=== PATIENT | female | born 1945 | race Two or more races ===

== ENCOUNTER 2024-07-17 10:42 | Emergency (ER) | payer OTHER ==
[~2024-07-17] VITALS: Ht 149.9 cm; Wt 70.8 kg
[~2024-07-17 10:42] MED LIST: CARV25TA55; FURO1TAB33; PLAVIX; VALS160T4
[2024-07-17] MEDS: SODIUM CHLORIDE 0.9% 1,000 ML IV ONE (12:39)
--- NOTE | 2024-07-17 12:52 | DVH ---
XY CHEST XRAY 1 VIEW, HISTORY: WEAKNESS COMPARISON: None None TECHNICAL DATA: 1 view of the chest was obtained. FINDINGS: Lines and tubes: Cardiac pacer is seen. Sternotomy wires are noted. Cardiomediastinal silhouette: Enlarged Pulmonary vasculature: normal Lung expansion: normal Lung airspace: normal Lung interstitium: normal Pleura: normal Pneumothorax: no Bones: Unremarkable Other: no IMPRESSION: No acute intrathoracic abnormality. Cardiomegaly.
--- NOTE | 2024-07-17 12:53 | ED.PDOC ---
History of Present Illness HPI Comments A 78 YEAR OLD FEMALE PRESENTS TO THE ED WITH COMPLAINT OF LOW BLOOD PRESSURE AND FATIGUE. PATIENT STATES SHE HAS BEEN EXPERIENCING LOWER BLOOD PRESSURE THEN USUAL AND INCREASED FATIGUE FOR THE PAST 3 DAYS. PATIENT DENIES VISION CHANGES, SLURRED SPEECH, ONE-SIDED WEAKNESS, FACIAL DROOP, DYSURIA, FEVER, CHILLS, SHORTNESS OF BREATH, CHEST PAIN, ABDOMINAL PAIN, NAUSEA, VOMITING, HEADACHE, OR OTHER COMPLAINTS. NO OTHER SYMPTOMS OR MODIFYING FACTORS AT THIS TIME. PATIENT IS ALERT, ORIENTED X 4, AND HAS STEADY GAIT. Chief Complaint: General Weakness Time Seen by MD: 11:43 Primary Care Provider: ROBYN Reviewed Notes: Nurses Notes, Medications, Allergies Allergies: Coded Allergies: NO KNOWN ALLERGIES (Unverified , 12/13/11) Home Meds Reported Medications Valsartan (Diovan) 160 Mg Tab 12/13/11 Furosemide (Lasix) 20 Mg Tb 12/13/11 Carvedilol (Carvedilol) 25 Mg Tab 12/13/11 [Plavix] 75 MG No Conflict Check 12/13/11 Information Source: Patient Mode of Arrival: Ambulatory Severity: Moderate Timing: Days Duration: Since onset, Days Prehospital treatment: None Medication Refill: For: Other (LOW BLOOD PRESSURE AND FATIGUE) Past Medical History PAST MEDICAL HISTORY: CAD, CKF, HTN Surgical History: Pacemaker [employer]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 Family History Family History: No family hx of DM Social History Smoker: Non-Smoker Alcohol: Denies ETOH Use Drugs: Denies Drug Use Lives In: Home Constitutional: reports: fatigue; denies: chills, diaphoresis, fever, malaise, sweats, weakness, others EENTM: denies: blurred vision, double vision, ear bleeding, ear discharge, ear drainage, ear pain, ear ringing, eye pain, eye redness, hearing loss, mouth pain, mouth swelling, nasal discharge, nose bleeding, nose congestion, nose pain, photophobia, tearing, throat pain, throat swelling, voice changes, others Respiratory: denies: cough, hemoptysis, orthopnea, SOB at rest, shortness of breath, SOB with excertion, stridor, wheezing, others Cardiovascular: reports: others (LOW BLOOD PRESSURE); denies: chest pain, dizzy spells, diaphoresis, Dyspnea on exertion, edema, irregular heart beat, left arm pain, lightheadedness, palpitations, PND, syncope Gastrointestinal: denies: abdomen distended, abdominal pain, blood streaked bowels, constipated, diarrhea, dysphagia, difficulty swallowing, hematemesis, melena, nausea, poor appetite, poor fluid intake, rectal bleeding, rectal pain, vomiting, others Genitourinary: denies: abnormal vagina bleeding, burning, dyspareunia, dysuria, flank pain, frequency, hematuria, incontinence, pain, , vagina discharge, urgency, others Neurological: denies: dizziness, fainting, headache, left sided numbness, left sided weakness, numbness, paresthesia, pre-existing deficit, right sided numbness, right sided weakness, seizure, speech problems, tingling, tremors, weakness, others Musculoskeletal: denies: back pain, gout, joint pain, joint swelling, muscle pain, muscle stiffness, neck pain, others Integumetry: denies: bruises, change in color, change in hair/nails, dryness, laceration, lesions, lumps, rash, wounds, others Allergic/Immunocompromised: denies: Difficulty Healing, Frequent Infections, Hives, Itching, others Hematologic/Lymphatic: denies: anemia, blood clots, easy bleeding, easy bruising, swollen glands, others Endocrine: denies: excessive hunger, excessive sweating, excessive thirst, excessive urination, flushing, intolerance to cold, intolerance to heat, unexplained weight gain, unexplained weight loss, others Psychiatric: denies: anxiety, bipolar disorder, depression, hopeless, panic disorder, schizophrenia, sleepless, suicidal, others All Other Systems: Reviewed and Negative Physical Exam General Appearance: No Apparent Distress, Normal HEENT: Normal ENT Inspection, PERRL/EOMI, Pharynx Normal, TMs Normal Neck: Full Range of Motion, Non-Tender, Normal, Normal Inspection Respiratory: Chest Non-Tender, Lungs Clear, No Accessory Muscle Use, No Respiratory Distress, Normal Breath Sounds Cardiovascular: No Edema, No JVD, No Murmur, No Gallop, Normal Peripheral Pulses, Regular Rate/Rhythm Breast Exam: Deferred Gastrointestinal: No Organomegaly, Non Tender, No Pulsatile Mass, Normal Bowel Sounds, Soft Genitalia: Deferred Pelvic: Deferred Rectal: Deferred Extremities: No calf tenderness, Normal capillary refill, Normal inspection, Normal range of motion, Non-tender, No pedal edema Musculoskeletal : Apperance: Normal Neurologic: Alert, converting supervisor II-XII nml as Tested, No Motor Deficits, Normal Affect, Normal Mood, No Sensory Deficits Cerebellar Function: Normal Reflexes: Normal Skin: Dry, Normal Color, Warm Peripheral Pulses: 2+ carotid (R), 2+ carotid (L) Lymphatic: No Adenopathy Was a procedure done? Was a procedure done?: No EKG EKG : Pulse Rate (adult): 60 [place]: Normal Cardiac Rhythm: NSR Block: None Hypertrophy: None ST: Normal Differential Dx Considerations may include: HYPOTENSION, DEHYDRATION, ELECTROLYTE IMBALANCE, UTI, ACUTE CYSTITIS, GENERALIZED WEAKNESS, HYPOKALEMIA, HYPONATREMIA X-Ray, Labs, Meds, VS Vital Signs Date Time Temp Pulse Resp B/P (MAP) Pulse Ox O2 Delivery O2 Flow Rate FiO2 07/17/24 13:34 98.4 61 18 117/60 (79) 96 98.4 07/17/24 12:07 82 18 97 Room Air 07/17/24 12:07 98.9 82 18 107/68 (81) 97 98.9 07/17/24 11:48 98.9 82 18 107/68 (81) 97 07/17/24 11:38 60 Lab Test 07/17/24 12:42 07/17/24 12:18 Range/Units White Blood Count 5.9 4.4-10.8 10^3/uL Red Blood Count 4.47 4.0-5.20 10^6/uL Hemoglobin 13.3 12.2-16.2 g/dL Hematocrit 40.4 36.0-46.0 % Mean Corpuscular Volume 90.5 80.0-100.0 fL Mean Corpuscular Hemoglobin 29.8 28.0-32.0 pg Mean Corpuscular Hemoglobin Concent 33.0 32.0-36.0 g/dL Red Cell Distribution Width 14.5 H 11.8-14.3 % Platelet Count 152 140-450 10^3/uL Mean Platelet Volume 10.1 6.9-10.8 fL Neutrophils (%) (Auto) 63.2 37.0-80.0 % Lymphocytes (%) (Auto) 23.9 10.0-50.0 % Monocytes (%) (Auto) 11.6 0.0-12.0 % Eosinophils (%) (Auto) 0.5 0.0-7.0 % Basophils (%) (Auto) 0.8 0.0-2.0 % Neutrophils # (Auto) 3.7 1.6-8.6 10 ^3/uL Lymphocytes # (Auto) 1.4 0.4-5.4 10 ^3/uL Monocytes # (Auto) 0.7 0-1.3 10 ^3/uL Eosinophils # (Auto) 0 0-0.8 10 ^3/uL Basophils # (Auto) 0 0-0.2 10 ^3/uL Nucleated Red Blood Cells 0.0 % Sodium Level 143 136-145 mmol/L Potassium Level 3.6 3.5-5.1 mmol/L Chloride Level 107 98-107 mmol/L Carbon Dioxide Level 28 20-31 mmol/L Anion Gap 8 5-15 Blood Urea Nitrogen 31 H 9-23 mg/dL Creatinine 1.03 H 0.550-1.02 mg/dL Glomerular Filtration Rate Calc 56 >90 mL/min BUN/Creatinine Ratio 30.1 H 10.0-20.0 Serum Glucose 118 H 74-106 mg/dL Calcium Level 9.4 8.7-10.4 mg/dL Magnesium Level 2.2 1.6-2.6 mg/dL Troponin I High Sensitivity 4 </=34 ng/L Thyroid Stimulating Hormone (TSH) 1.04 0.55-4.78 uIU/mL Urine Color Light-yellow Yellow Urine Clarity Clear Clear Urine pH 6.0 5.0-9.0 Urine Specific [place] 1.013 1.001-1.035 Urine Protein Negative Negative Urine Ketones Negative Negative Urine Blood Negative Negative /uL Urine Nitrite 2+ H Negative Urine Bilirubin Negative Negative Urine Urobilinogen Normal Negative mg/dL Urine Leukocyte Esterase 2+ Negative /uL Urine RBC 1 0 - 4 /hpf Urine WBC 12 0 - 5 /hpf Urine Squamous Epithelial Cells Few <5 /hpf Urine Bacteria Few H None Seen /hpf Urine Hyaline Casts Mod 0 - 2 /lpf Urine Glucose Normal Normal mg/dL Current Medications Medications (Trade) Dose Ordered Sig/Angelina Route Start Time Stop Time Status Last Admin Sodium Chloride 1,000 ml @ 1,000 mls/hr Q1H ONCE IV 07/17/24 12:15 07/17/24 13:14 DC 07/17/24 12:39 X-Ray, Labs, Meds, VS Comment LABS ORDERED: CBC, BMP, UA, MAGNESIUM, TSH, TROPONIN REVIEWED AND INTERPRETED RESULTS: LEUKOCYTES 2+, NITRITES 2+ TREATMENT: NS 1 L IV, ROCEPHIN 1 G IV A 78 YEAR OLD FEMALE PRESENTED TO THE ED C/O GENERALIZED WEAKNESS AND LOW BLOOD PRESSURE PER PATIENT FOR THE PAST 3 DAYS. UPON MY PHYSICAL EXAMINATION, WAS WELL-APPEARING AND WAS IN NO ACUTE RESPIRATORY DISTRESS OR PAIN AT THIS TIME. MY DIFFERENTIAL DIAGNOSIS INCLUDES, DEHYDRATION, ELECTROLYTE IMBALANCE, UTI, ACUTE CYSTITIS, HYPOTENSION, HYPOKALEMIA, HYPONATREMIA. LABS WERE ORDERED FOR THE PATIENT WHICH REVEALED LEUKOCYTES 2+ IN HER URINE AND NITRITES 2+ IN THE URINE SUGGESTING A URINARY TRACT INFECTION. PATIENT WAS MEDICATED HERE IN THE ED WITH NS 1 L IV AND ROCEPHIN 1 G IM. I HAVE CONSULTED DR. FIELDS REGARDING THIS PATIENT'S CASE AND HE WAS SAID PATIENT IS SAFE TO DISCHARGE HOME. PATIENT WILL BE DISCHARGED HOME AND I HAVE ADVISED THEM TO FOLLOW-UP WITH THE PCP IN 1 TO 2 DAYS AND RETURN TO THE ED FOR ANY NEW OR WORSENING SYMPTOMS. Images Reviewed?: Images reviewed and evaluated by me Time of 1ST Reevaluation: 13:48 Reevaluation 1ST: Improved Patient Education/Counseling: Diagnosis, Treatment, Need For Follow Up Family Education/Counseling: Diagnosis, Treatment, Need For Follow Up Medical Screening: No EMC Exist At This Time Departure 1 Departure Time of Disposition: 14:00 Impression: Primary Impression: Generalized weakness Additional Impressions: Acute UTI (urinary tract infection) Dehydration Disposition: 01 HOME / SELF CARE / HOMELESS Condition: Stable Additional Instructions: FOLLOW-UP WITH PCP IN 1 TO 2 DAYS. TAKE MEDICATIONS PRESCRIBED. RETURN TO ED FOR ANY NEW OR WORSENING SYMPTOMS. Discharged With: Self, Relative Critical Care Note Critical Care Time?: No Stability Stability form required: No I personally scribed for KARIN COWNAY ([email or web address]) on 07/17/24 at 12:53. Electronically submitted by Barry Fregoso (OG). I personally scribed for KARIN CONWAY ([email or web address]) on 07/17/24 at 13:43. Electronically submitted by Barry Fregoso (OG). I personally scribed for KARIN CONWAY ([email or web address]) on 07/17/24 at 13:46. Electronically submitted by Barry Fregoso (OG). KARIN CONWAY Jul 17, 2024 12:53
[2024-07-17 13:00] LABS: Basophils # (auto) 0 10 ^3/uL (0-0.2); Basophils % (auto) 0.8 % (0.0-2.0); Eosinophils # (auto) 0 10 ^3/uL (0-0.8); Eosinophils % (auto) 0.5 % (0.0-7.0); Hematocrit 40.4 % (36.0-46.0); Hemoglobin 13.3 g/dL (12.2-16.2); Lymphocytes # (auto) 1.4 10 ^3/uL (0.4-5.4); Lymphocytes % (auto) 23.9 % (10.0-50.0); Mean Corpuscular Hemoglobin 29.8 pg (28.0-32.0); Mean Corpuscular Volume 90.5 fL (80.0-100.0); Monocytes # (auto) 0.7 10 ^3/uL (0-1.3); Monocytes % (auto) 11.6 % (0.0-12.0); Neutrophils # (auto) 3.7 10 ^3/uL (1.6-8.6); Neutrophils % (auto) 63.2 % (37.0-80.0); Platelet Count (auto) 152 10^3/uL (140-450); Red Blood Cells 4.47 10^6/uL (4.0-5.20); Red Cell Distribution Width 14.5 % (11.8-14.3); White Blood Cell 5.9 10^3/uL (4.4-10.8)
[2024-07-17 13:10] LABS: Chloride 107 mmol/L (98-107); Potassium 3.6 mmol/L (3.5-5.1); Sodium 143 mmol/L (136-145)
[2024-07-17 13:11] LABS: Anion Gap 8 (5-15); Calcium 9.4 mg/dL (8.7-10.4); Carbon Dioxide 28 mmol/L (20-31)
[2024-07-17 13:16] LABS: BUN/Creatinine Ratio 30.1 (10.0-20.0); Blood Urea Nitrogen 31 mg/dL (9-23); Glucose 118 mg/dL (74-106); Magnesium 2.2 mg/dL (1.6-2.6)
[2024-07-17 13:34] VITALS: BP 117/60; RESP 18; TEMP 98.4; O2SAT 96
[2024-07-17 13:34] LABS: Urine Bacteria FEW /hpf (None Seen); Urine Blood Negative /uL (Negative); Urine Clarity Clear (Clear); Urine Color Light-Yellow (Yellow); Urine Hyaline Cast MOD /lpf (0 - 2); Urine Protein, UAD Negative (Negative); Urine Specific Gravity 1.013 (1.001-1.035); Urine Urobilinogen Normal (Negative); Urine WBC 12 /hpf (0 - 5)
[2024-07-17 13:46] VITALS: PULSE 60
[2024-07-17] MEDS: cefTRIAXone 1GM/50ML D5W 50 ML IV ONE ×2 (13:48→13:49)
== END 2024-07-17 13:59 | disposition home or self-care (01) ==
LOC: ER 10:42
DX: N39.0 Urinary tract infection, site not specified (principal); E86.0 Dehydration; R53.1 Weakness; I12.9 Hypertensive chronic kidney disease with stage 1 through stage 4 chronic kidney disease, or unspecified chronic kidney disease; N18.9 Chronic kidney disease, unspecified; I25.10 Atherosclerotic heart disease of native coronary artery without angina pectoris; Z95.0 Presence of cardiac pacemaker; Z98.890 Other specified postprocedural states; Z79.899 Other long term (current) drug therapy
CPT/HCPCS: 36415; 71045; 80048; 81001; 83735; 84443; 84484; 85025; 96361; 96374; 99285; J0696; J7030; 96365